=== PATIENT | male | born 1960 | race Caucasian/White ===

== ENCOUNTER 2018-02-16 17:34 | Emergency (ER) | payer BC ==
--- NOTE | 2018-02-16 18:45 | RAD ---
TWO VIEWS OF THE RIGHT TIBIA AND FIBULA: 02/16/18 COMPARISON: None. HISTORY: Laceration of the right leg wit a chainsaw. FINDINGS: Two views of the right tibia/fibula shows no evidence of acute fracture or dislocation. There is a la ceration in the anterior aspect of the leg overlying the distal tibial metaphysis. No radiopaque fore ign body is seen. IMPRESSION: No evidence of acute osseous abnormality. POS: ANTHONY
[2018-02-16] MEDS ORDERED: Lidocaine 1% (PF) 30 ML VIAL ONE (19:15)
[2018-02-16] MEDS ORDERED: Bacitracin Zinc 1 Packet ONE (20:40)
== END 2018-02-16 20:55 | disposition home or self-care (01) ==
LOC: ERS 17:34
DX: S81.811A Laceration without foreign body, right lower leg, initial encounter (principal); I10 Essential (primary) hypertension; Z79.899 Other long term (current) drug therapy; Z79.82 Long term (current) use of aspirin; W29.3XXA Contact with powered garden and outdoor hand tools and machinery, initial encounter
CPT/HCPCS: 12002; J2001

== ENCOUNTER 2023-07-15 13:03 | Inpatient (IN) | payer BC, MEDICARE ==
[2023-07-15] MEDS ORDERED: Ondansetron ODT 4 MG TAB PO PRN (15:07)
[2023-07-15] MEDS ORDERED: Acetaminophen 325 MG TAB PO PRN (15:07)
[2023-07-15] MEDS ORDERED: Aspirin 81 mg Enteric Coated Tablet PO SCH (16:45)
[2023-07-15] MEDS ORDERED: Valproate Sodium 1,000 MG in Sodium Chloride 0.9% 100 ML IVPB SCH (17:00)
[2023-07-15 17:12] VITALS: BMI 32.7
[2023-07-15] MEDS: Lisinopril/Hydrochlorothiazide 20/25 mg Tablet PO SCH (20:27)
[2023-07-15] MEDS: QUEtiapine 25 MG TAB PO SCH (20:27)
[2023-07-16] MEDS: Valproate Sodium 500 MG in Sodium Chloride 0.9% 100 ML IVPB SCH ×2 (05:25→17:10)
[2023-07-16 10:02] LABS: #Eosinphils 0.1 thou/uL (0.0-0.7); #Monocytes 0.3 thou/uL (0.11-0.59); #Neutrophils 2.9 thou/uL (1.40-6.50); %Basophils 0.6 % (0.0-1.0); %Eosinophils 2.9 % (0.0-10.0); %Lymphocytes 29.5 % (21.0-51.0); %Monocytes 6.5 % (0.0-10.0); %Neutrophils 60.3 % (42.0-75.0); Hematocrit 46.1 % (42.0-52.0); Hemoglobin 15.2 g/dL (14.0-18.0); Mean Corpuscular Hemoglobin 26.3 pg (27.0-31.0); Mean Corpuscular Volume 79.9 fl (78.0-98.0); Mean Platelet Volume 11.6 fL (7.4-10.4); Platelet Count 150 10x3/uL (130-400); RBC Distribution Width 14.6 % (11.5-14.5); Red Blood Cell (RBC) Count 5.77 mill/uL (4.70-6.10); White Blood Cell (WBC) Count 4.8 10x3/uL (4.8-10.8)
[2023-07-16 10:28] LABS: ALT (SGPT) 27 U/L (8-55); AST (SGOT) 19 U/L (5-34); Albumin 4.1 g/dL (3.4-4.8); Alkaline Phosphatase 61 U/L (40-110); Anion Gap 13 mmol/L (10-20); BUN (Urea Nitrogen) 12 mg/dL (8.4-25.7); Bilirubin, Total 0.5 mg/dL (0.2-1.2); Calc. Creatinine Clearance 125 mL/min (70-130); Calcium 9.2 mg/dL (7.8-10.44); Carbon Dioxide 27 mmol/L (23-31); Chloride 103 mmol/L (98-107); Estimated GFR 83; Globulin 2.5 g/dL (2.4-3.5); Glucose 100 mg/dL (80-115); Potassium 3.6 mmol/L (3.5-5.1); Protein, Total 6.6 g/dL (5.8-8.1); Sodium 139 mmol/L (136-145)
[2023-07-16] MEDS: Aspirin 81 mg Enteric Coated Tablet PO SCH (10:44)
[2023-07-16] MEDS: Lisinopril/Hydrochlorothiazide 20/25 mg Tablet PO SCH ×2 (10:44→20:05)
[2023-07-16] MEDS: Sertraline 100 MG TAB PO SCH (10:44)
[2023-07-16] MEDS: Donepezil HCl 10 MG TAB PO SCH (10:45)
[2023-07-16] MEDS: QUEtiapine 25 MG TAB PO SCH ×2 (10:45→20:06)
[2023-07-16] MEDS ORDERED: OLANZapine 5 MG TAB PO SCH (20:00)
[2023-07-16] MEDS: Divalproex Sodium DR 500 MG TAB PO SCH (20:06)
[2023-07-17] MEDS: Divalproex Sodium DR 500 MG TAB PO SCH (09:37)
[2023-07-17] MEDS: Lisinopril/Hydrochlorothiazide 20/25 mg Tablet PO SCH (09:38)
[2023-07-17] MEDS: Aspirin 81 mg Enteric Coated Tablet PO SCH (09:38)
[2023-07-17] MEDS: Donepezil HCl 10 MG TAB PO SCH (09:38)
[2023-07-17] MEDS: Sertraline 100 MG TAB PO SCH (09:38)
[2023-07-17] MEDS: QUEtiapine 25 MG TAB PO SCH (09:39)
[2023-07-17 12:01] VITALS: BP 125/74; TEMP 97.8
== END 2023-07-17 13:10 | disposition home or self-care (01) | DRG 92 ==
LOC: 2SE 14:31 → OBSVTOIN 07-16 18:09
PROVIDERS: ADMIT Internal Medicine; ATTEND Internal Medicine Critical Care Medicine
PROC: 4A10X4Z Monitoring of Central Nervous Electrical Activity, External Approach (ICD-10-PCS; principal; 2023-07-16)
DX: G25.3 Myoclonus (principal); F02.811 Dementia in other diseases classified elsewhere, unspecified severity, with agitation; I10 Essential (primary) hypertension; M51.36 Other intervertebral disc degeneration, lumbar region; Z79.899 Other long term (current) drug therapy; Z98.890 Other specified postprocedural states; Z88.8 Allergy status to other drugs, medicaments and biological substances; Z80.9 Family history of malignant neoplasm, unspecified; G30.0 Alzheimer's disease with early onset
CPT/HCPCS: 36415; 70551; 70553; 72148; 72158; 80053; 80164; 84443; 85025; 95712; 95819; 95957; 96374; 96376; G0378; J3490

== ENCOUNTER 2024-04-04 00:06 | Emergency (ER) | payer MEDICARE, OTHER ==
[2024-04-04 01:01] LABS: #Basophils 0.04 10x3/uL (0.0-0.2); %Basophils 0.5 % (0.0-1.0); %Eosinophils 0.8 % (0.0-10.0); %Lymphocytes 14.5 % (21.0-51.0); %Monocytes 6.8 % (0.0-10.0); %Neutrophils 76.9 % (42.0-75.0); Hematocrit 44.6 % (42.0-52.0); Mean Corpuscular HGB CONC 33.6 g/dL (32.0-36.0); Mean Corpuscular Hemoglobin 27.3 pg (27.0-31.0); Mean Corpuscular Volume 81.1 fL (78.0-98.0); Mean Platelet Volume 12.8 fL (7.4-10.4); Platelet Count 157 10x3/uL (130-400); RBC Distribution Width 14.1 % (11.5-14.5)
[2024-04-04 01:07] LABS: Bilirubin Negative (Negative); Blood, Urine Negative (Negative); Glucose, Urine (Dipstick) Negative (Negative); Ketone, Urine Negative (Negative); Leukocyte Negative (Negative); Nitrite Negative (Negative); Protein, Urine (Dipstick) Negative (Neg-Trace); Urobilinogen 0.2 mg/dL (Less than 2)
[2024-04-04 01:09] LABS: Clarity Hazy (Clear)
[2024-04-04 01:12] LABS: Bacteria/HPF None Seen HPF (None Seen); CAUTI Indications for Culture Alt mental st,lethar; RBC/HPF 0-3 HPF (0-3); Squamous Epithelial None Seen HPF (0-3); WBC/HPF 0-3 HPF (0-3)
[2024-04-04 01:15] LABS: ALT (SGPT) 32 U/L (8-55); AST (SGOT) 20 U/L (5-34); Albumin 4.2 g/dL (3.4-4.8); Alkaline Phosphatase 49 U/L (40-110); Anion Gap 21 mmol/L (10-20); BUN (Urea Nitrogen) 43 mg/dL (8.4-25.7); Bilirubin, Total 0.4 mg/dL (0.2-1.2); Calc. Creatinine Clearance 0 mL/min (70-130); Calcium 10.3 mg/dL (7.8-10.44); Carbon Dioxide 23 mmol/L (23-31); Chloride 104 mmol/L (98-107); Estimated GFR 57; Globulin 3.1 g/dL (2.4-3.5); Glucose 138 mg/dL (80-115); Lipase 41 U/L (8-78); Potassium 4.9 mmol/L (3.5-5.1); Protein, Total 7.3 g/dL (5.8-8.1); Sodium 143 mmol/L (136-145)
[2024-04-04 01:17] LABS: Urine Culture Reflex No No
[2024-04-04 01:21] LABS: Troponin I Less than 0.010 ng/mL (< 0.028)
[2024-04-04] MEDS ORDERED: Sodium Chloride 0.9% 100 ML ONE (01:29)
[2024-04-04] MEDS ORDERED: cefTRIAXone (ROCEPHIN) 2 GM VIAL ONE (01:29)
[2024-04-04 04:26] LABS: Lactic Acid 2.7 mmol/L (0.5-2.2)
[2024-04-04] MEDS ORDERED: Iopamidol-370 76% 500 ML MDV (1 ML CHARGE) ONE (09:44)
== END 2024-04-04 06:05 | disposition home or self-care (01) ==
LOC: ERS 00:06
DX: R33.9 Retention of urine, unspecified (principal); K59.00 Constipation, unspecified; E86.0 Dehydration; I10 Essential (primary) hypertension
CPT/HCPCS: 36415; 51702; 71045; 74177; 80053; 81001; 83605; 83690; 84484; 85025; 93005; 96361; 96374; J0696; J3490; Q9967

== ENCOUNTER 2024-04-14 10:48 | Inpatient (IN) | payer OTHER ==
[2024-04-14] MEDS ORDERED: Morphine 2 MG/ML VIAL ONE (11:15)
[2024-04-14] MEDS ORDERED: Diazepam 10 MG/2 ML SYRINGE ONE (11:26)
[2024-04-14] MEDS: GLYCOPYRROLATE/PF 0.2 MG/ML VIAL SLOW IVP SCH (12:46)
[2024-04-14 12:58] VITALS: BP 123/91; TEMP 102.8
== END 2024-04-14 13:06 | disposition hospice, inpatient (51) | DRG 57 ==
LOC: ERS 10:48 → T4-A 12:22
PROVIDERS: ADMIT Family Medicine; ATTEND Family Medicine
DX: G30.9 Alzheimer's disease, unspecified (principal); I10 Essential (primary) hypertension; Z51.5 Encounter for palliative care; Z66 Do not resuscitate; G40.901 Epilepsy, unspecified, not intractable, with status epilepticus; Z88.8 Allergy status to other drugs, medicaments and biological substances; Z79.899 Other long term (current) drug therapy; Z98.890 Other specified postprocedural states
CPT/HCPCS: 96374; 96375; J2272; J3360; J3490

== ENCOUNTER 2024-04-14 13:35 | Inpatient (IN) | payer OTHER ==
[2024-04-14] MEDS ORDERED: Bisacodyl 10 MG SUPP PR PRN (13:59)
[2024-04-14] MEDS ORDERED: Ondansetron PF 4 MG/2 ML Vial IVP PRN (14:00)
[2024-04-14] MEDS: Morphine 2 MG/ML VIAL SLOW IVP PRN (14:36)
[2024-04-14] MEDS: Diazepam 10 MG/2 ML SYRINGE IVP PRN (16:44)
[2024-04-14] MEDS: Acetaminophen 650 MG Suppository PR PRN (16:44)
[2024-04-15] MEDS: GLYCOPYRROLATE/PF 0.2 MG/ML VIAL SLOW IVP PRN (09:06)
[2024-04-15] MEDS: Scopolamine 1 mg/72 hour Patch TOP PRN ×2 (14:04→19:56)
[2024-04-15] MEDS ORDERED: Diazepam 10 MG/2 ML SYRINGE IVP PRN (16:54)
[2024-04-15] MEDS: Diazepam 10 MG/2 ML SYRINGE IVP SCH (18:13)
[2024-04-15] MEDS: diphenhydrAMINE 50 MG/ML VIAL IVP PRN (19:20)
[2024-04-15] MEDS ORDERED: Atropine Sulfate 1% Ophth Soln 5 ml Bottle SL PRN (19:42)
[2024-04-15] MEDS: Atropine Sulfate 1% Ophth Soln 5 ml Bottle SL PRN (19:56)
[2024-04-15] MEDS: Morphine 4 MG/ML VIAL SLOW IVP PRN (20:03)
[2024-04-15] MEDS: Haloperidol Lactate 5 MG/ML VIAL SLOW IVP PRN (21:02)
[2024-04-15 21:40] VITALS: BP 98/68
[2024-04-16] MEDS ORDERED: Haloperidol Lactate 5 MG/ML VIAL SLOW IVP PRN (03:56)
[2024-04-16] MEDS: Morphine 4 MG/ML VIAL SLOW IVP PRN (04:25)
[2024-04-16] MEDS: Diazepam 10 MG/2 ML SYRINGE IVP SCH (05:58)
[2024-04-16 07:48] VITALS: TEMP 103.2
== END 2024-04-16 19:55 | disposition expired | DRG 951 ==
LOC: T4-A 13:35
PROVIDERS: ADMIT Family Medicine; ATTEND Family Medicine
DX: Z51.5 Encounter for palliative care (principal); G30.9 Alzheimer's disease, unspecified; F02.80 Dementia in other diseases classified elsewhere, unspecified severity, without behavioral disturbance, psychotic disturbance, mood disturbance, and anxiety; G40.901 Epilepsy, unspecified, not intractable, with status epilepticus; I10 Essential (primary) hypertension; Z88.8 Allergy status to other drugs, medicaments and biological substances; Z79.899 Other long term (current) drug therapy; Z98.890 Other specified postprocedural states
CPT/HCPCS: J1200; J1630; J2270; J2272; J3360; J3490; Q2009